=== PATIENT | female | born 1960 | race Caucasian/White ===

== ENCOUNTER 2017-12-11 08:18 | Emergency (ER) | END 2017-12-11 15:00 | disposition home or self-care (01) ==

== ENCOUNTER 2019-07-08 23:51 | Emergency (ER) | payer BC ==
[~2019-07-08] VITALS: Ht 160 cm; Wt 75.8 kg
[~2019-07-08 23:51] MED LIST: ACET500C5 PO; AZIT250T PO; BEN25 PO; PRED20TA PO
[2019-07-08 23:56] VITALS: Ht 160 cm; Wt 75.8 kg
[2019-07-09] MEDS ORDERED: DIPHENHYDRAMINE 50 MG INJ IV ONE (03:00)
[2019-07-09] MEDS ORDERED: METHYLPREDNISOLONE 125 MG INJ IV ONE (03:00)
[2019-07-09] MEDS ORDERED: SOD CHLORIDE 0.9% 1,000 ML IV ONE (03:00)
[2019-07-09 04:31] VITALS: BP 103/71; PULSE 88; RESP 17
== END 2019-07-09 04:31 | disposition home or self-care (01) ==
LOC: FTE 23:51
DX: L50.9 Urticaria, unspecified (principal)
CPT/HCPCS: 80048; 85025; J1200; J2930; J7030; 96361; 96374; 96375